=== PATIENT | female | born 1960 | race Caucasian/White ===

== ENCOUNTER 2018-01-04 21:10 | Emergency (ER) | payer MEDICARE ==
[~2018-01-04] VITALS: Ht 175.3 cm; Wt 80.5 kg
[2018-01-04 21:31] VITALS: Ht 175.3 cm; Wt 80.5 kg
[2018-01-04] MEDS ORDERED: INVOKANA300 MG PO (21:37)
[2018-01-04] MEDS ORDERED: BUPROPION XL300 MG (21:37)
[2018-01-04] MEDS ORDERED: CYCLOBENZAPRINE10 MG PO (21:38)
[2018-01-04] MEDS ORDERED: CLEOCIN HCL300 MG PO ×2 (21:38→23:28)
[2018-01-04] MEDS ORDERED: PROZAC10 MG PO (21:39)
[2018-01-04] MEDS ORDERED: DIFLUCAN100 MG (21:39)
[2018-01-04] MEDS ORDERED: FEXOFENADINE H180 MG PO (21:39)
[2018-01-04] MEDS ORDERED: VALIUM10 MG PO (21:39)
[2018-01-04] MEDS ORDERED: BASAGLAR K100 UNIT/1 SC (21:40)
[2018-01-04] MEDS ORDERED: HUMALOG 30100 UNITS/ SC (21:40)
[2018-01-04] MEDS ORDERED: NORCO 10-325 TA1 TAB PO (21:40)
[2018-01-04] MEDS ORDERED: ZESTORETIC 20-1 EACH PO (21:41)
[2018-01-04] MEDS ORDERED: LINZESS290 MCG PO (21:41)
[2018-01-04] MEDS ORDERED: LEVOXYL50 MCG PO (21:41)
[2018-01-04] MEDS ORDERED: CLARITIN 10 MG10 MG PO (21:42)
[2018-01-04] MEDS ORDERED: REGLAN5 MG PO ×2 (21:43→21:44)
[2018-01-04] MEDS ORDERED: NITROQUICK0.4 MG SL (21:44)
[2018-01-04] MEDS ORDERED: OMEPRAZOLE40 MG PO (21:45)
[2018-01-04] MEDS ORDERED: PREMARIN0.625 MG PO (21:45)
[2018-01-04] MEDS ORDERED: LYRICA100 MG PO (21:45)
[2018-01-04] MEDS ORDERED: JANUMET XR 50-1 EACH PO (21:46)
[2018-01-04] MEDS ORDERED: PROMETRIUM200 MG PO (21:46)
[2018-01-04] MEDS ORDERED: ZOCOR10 MG PO (21:46)
[2018-01-04] MEDS ORDERED: SILVADENE20 GM TP (21:47)
[2018-01-04] MEDS ORDERED: TOPAMAX50 MG PO (21:47)
[2018-01-04] MEDS ORDERED: AMBIEN10 MG PO (21:47)
[2018-01-04 22:31] LABS: ALBUMIN 3.9 g/dL (3.4-5.0); ANION GAP 13.5 mmol/L (8-16); BILIRUBIN - TOTAL 0.16 mg/dL (0.2-1.3); CALCIUM 9.5 mg/dL (8.5-10.1); CARBON DIOXIDE 26.5 mmol/L (21.0-32.0); CREATININE - SERUM 1.5 mg/dL (0.6-1.3); PROTEIN - SERUM 8.2 g/dL (6.4-8.2)
[2018-01-04 22:32] LABS: BASOPHILS 0.4 % (0-2); EOSINOPHILS 4.6 % (0-7); HEMATOCRIT 42.3 % (36.0-48.0); HEMOGLOBIN 13.8 g/dL (12-16); IMMATURE GRANULOCYTES 0.7 % (0-5); LYMPHOCYTES 29.3 % (15-50); MCH 30.7 pg (26.0-34.0); MCHC 32.6 g/dL (31.0-37.0); MCV 94.2 fL (80.0-100.0); PLATELET COUNT 306 10x3/uL (130-400); RBC 4.49 10x6/uL (4.00-5.40); WBC 10.7 10x3/uL (4.8-10.8)
[2018-01-04] MEDS ORDERED: KEFLEX500 MG PO (23:28)
[2018-01-04] MEDS ORDERED: FLORASTOR250 MG PO (23:29)
[2018-01-04 23:40] VITALS: BP 128/93
== END 2018-01-04 23:38 ==
LOC: D.ER 21:10
PROVIDERS: Family Medicine
DX: L03.032 Cellulitis of left toe (principal); I10 Essential (primary) hypertension; I25.10 Atherosclerotic heart disease of native coronary artery without angina pectoris; K21.9 Gastro-esophageal reflux disease without esophagitis

== ENCOUNTER 2020-06-23 16:15 | Inpatient (IN) | payer MEDICARE ==
[~2020-06-23] VITALS: Ht 175.3 cm; Wt 90.3 kg
[~2020-06-23 16:15] MED LIST: AMBIEN10 MG PO; BASAGLAR K100 UNIT/1 SC; BUPROPION XL300 MG PO; CLARITIN 10 MG10 MG PO; CLEOCIN HCL300 MG PO; CYCLOBENZAPRINE10 MG PO; DIFLUCAN100 MG PO; FEXOFENADINE H180 MG PO; FLORASTOR250 MG PO; HUMALOG 30100 UNITS/ SC; INVOKANA300 MG PO; JANUMET XR 50-1 EACH PO; KEFLEX500 MG PO; LEVOXYL50 MCG PO; LINZESS290 MCG PO; LYRICA100 MG PO; NITROQUICK0.4 MG SL; NORCO 10-325 TA1 TAB PO; OMEPRAZOLE40 MG PO; PREMARIN0.625 MG PO; PROMETRIUM200 MG PO; PROZAC10 MG PO; REGLAN5 MG PO; SILVADENE20 GM TP; TOPAMAX50 MG PO; VALIUM10 MG PO; ZESTORETIC 20-1 EACH PO; ZOCOR10 MG PO
[2020-06-23 19:02] LABS: BASOPHILS 0.3 % (0-2); EOSINOPHILS 4.6 % (0-7); HEMATOCRIT 34.3 % (36.0-48.0); IMMATURE GRANULOCYTES 0.8 % (0-5); LYMPHOCYTE ABS# 2.81 10x3/uL (1.18-3.74); LYMPHOCYTES 27.7 % (15-50); MCHC 29.2 g/dL (31.0-37.0); MCV 85.8 fL (80.0-100.0); MEAN PLATELET VOLUME 9.4 fL (7.4-10.4); MONOCYTES 7.8 % (2-11); NEUTROPHIL ABS# 5.96 10x3/uL (1.56-6.13); NEUTROPHILS 58.8 % (40-80); RDW 15.9 % (11.5-14.5); WBC 10.1 10x3/uL (4.8-10.8)
[2020-06-23 19:03] LABS: PLATELET COUNT 378 10x3/uL (130-400)
[2020-06-23 19:13] LABS: APTT 23.5 SECONDS (22.8-39.4); INR 1.04 (0.85-1.17); PROTIME 12.6 SECONDS (11.6-15.0)
[2020-06-23 19:29] LABS: CALC OSMOLALITY 283 mosm/kg (275-300); CALCIUM 9.7 mg/dL (8.5-10.1); CARBON DIOXIDE 25.9 mmol/L (21.0-32.0); CHLORIDE - SERUM 103 mmol/L (98-107); CREATININE - SERUM 1.1 mg/dL (0.6-1.3); POTASSIUM - SERUM 3.9 mmol/L (3.5-5.1); SODIUM 141 mmol/L (136-145); UREA NITROGEN 22 mg/dL (7-18); eGFR NON AFRICAN AMERICAN 54 mL/min (90-120)
[2020-06-23 19:43] LABS: GLUCOSE 96 mg/dL (74-106)
[2020-06-23 19:45] LABS: ALBUMIN 3.4 g/dL (3.4-5.0); ALKALINE PHOSPHATASE 80 U/L (30-120); ALT (SGPT) 23 U/L (10-68); BILIRUBIN - TOTAL 0.22 mg/dL (0.2-1.3)
[2020-06-23 19:51] LABS: TROPONIN-I < 0.017 ng/mL (0.000-0.060)
[2020-06-23 20:27] VITALS: BP 174/81
[2020-06-23 21:30] VITALS: BP 159/93
[2020-06-23 21:52] LABS: % SATURATION 8 % (15-55); IRON 29 ug/dl (35-150); TOTAL IRON BIND CAPACITY 357 ug/dl (260-445); UNSAT IRON BIND CAPACITY 328 ug/dl (150-375)
[2020-06-23 22:08] VITALS: BP 138/74
[2020-06-23 22:20] LABS: MAGNESIUM - SERUM 1.6 mg/dL (1.8-2.4)
--- NOTE | 2020-06-23 23:30 | NUR ---
PT ARRIVED TO FLOOR VIA STRETCHER. TRANSFERED SELF TO BED WITHOUT DIFFICULTY. PT STATES SHE HAS HAD 2-3 WEEK HISTORY OF SOB AND PAIN TO LEFT LOWER LEG AND WENT TO BE SEEN BY DR TODD AND WAS SENT TO ER. PT IS ON ROOM AIR AT THIS TIME WITHOUT DISTRESS. IV RIGHT FA SL. DENIES PAIN OR NEEDS. ADMIT ASSESSMENT COMPLETED AT THIS TIME. CL IN REACH
[2020-06-24] VITALS (7 sets, daily range): BP systolic 96–165; BP diastolic 53–75; Ht 175.3 cm; Wt 90.3 kg
[2020-06-24] MEDS ORDERED: NOVOLOG100 UNIT/1 SC (00:35)
[2020-06-24] MEDS ORDERED: LIPITOR40 MG PO (00:38)
[2020-06-24] MEDS ORDERED: NEURONTIN 300300 MG PO (00:43)
[2020-06-24] MEDS ORDERED: HYDROCODON-ACE1 EA10 PO (00:44)
[2020-06-24] MEDS ORDERED: LISINOPRIL-HCT1 EAC8 PO (00:46)
[2020-06-24] MEDS ORDERED: CLARITIN 10 MG10 MG PO (00:47)
[2020-06-24] MEDS ORDERED: GLUCOPHAGE1000 MG PO (00:48)
[2020-06-24] MEDS ORDERED: CORTISPORIN OTI10 M1 EACH EAR (00:49)
[2020-06-24] MEDS ORDERED: ONDANSETRON HCL8 MG PO (00:51)
[2020-06-24] MEDS ORDERED: SYNTHROID75 MCG PO (00:53)
[2020-06-24 06:01] LABS: BASOPHILS 0.5 % (0-2); EOSINOPHILS 4.9 % (0-7); HEMATOCRIT 30.6 % (36.0-48.0); HEMOGLOBIN 8.6 g/dL (12-16); IMMATURE GRANULOCYTES 0.9 % (0-5); LYMPHOCYTE ABS# 3.34 10x3/uL (1.18-3.74); LYMPHOCYTES 33.5 % (15-50); MCH 24.4 pg (26.0-34.0); MCHC 28.1 g/dL (31.0-37.0); MCV 86.7 fL (80.0-100.0); MEAN PLATELET VOLUME 10.5 fL (7.4-10.4); MONOCYTES 7.8 % (2-11); NEUTROPHIL ABS# 5.21 10x3/uL (1.56-6.13); NEUTROPHILS 52.4 % (40-80); PLATELET COUNT 343 10x3/uL (130-400); RBC 3.53 10x6/uL (4.00-5.40); RDW 16.3 % (11.5-14.5)
[2020-06-24 06:29] LABS: APTT 20.2 SECONDS (22.8-39.4); INR 1.06 (0.85-1.17); PROTIME 12.7 SECONDS (11.6-15.0)
[2020-06-24 06:36] LABS: ALBUMIN 2.6 g/dL (3.4-5.0); ANION GAP 16.5 mmol/L (8-16); BILIRUBIN - TOTAL 0.15 mg/dL (0.2-1.3); CALCIUM 8.8 mg/dL (8.5-10.1); CARBON DIOXIDE 23.3 mmol/L (21.0-32.0); CREATININE - SERUM 1.1 mg/dL (0.6-1.3); MAGNESIUM - SERUM 1.8 mg/dL (1.8-2.4); POTASSIUM - SERUM 3.8 mmol/L (3.5-5.1); PROTEIN - SERUM 6.4 g/dL (6.4-8.2)
--- NOTE | 2020-06-24 07:42 | NUR ---
ALERT AND ORIENTED. ASSESSMENT COMPLETE. DENIES NEEDS. BED LOW. CALL TRINH AND PERSONAL ITEMS IN REACH. WILL CONTINUE TO MONITOR.
--- NOTE | 2020-06-24 08:15 | NUR ---
EDUCATION PROVIDED ON NEED FOR UA AND STOOL SAMPLE. VERBALIZED UNDERSTANDING. HATS PLACED IN TOILET.
--- NOTE | 2020-06-24 08:41 | NUR ---
IS AT BEDSIDE OPENED FOR PATIENT AND EDUCATION PROVIDED. PER PULMONARY NOTE, IS RECOMMENDED FOR PATIENT. PATIENT VERBALIZES UNDERSTANDING. 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
--- NOTE | 2020-06-24 09:41 | NUR ---
PATIENT CONCERNED ABOUT NOT GETTING HOME DOSES OF SCHEDULED INSULIN. SPOKE WITH RICKY SPENCER TO NOTIFY. STATES WILL CHECK HOME MEDS.
--- NOTE | 2020-06-24 10:33 | NUR ---
PATIENT STATES FEELING SOB. CHECKED PULSE OX AND PATIENT SAT 92% ON ROOM AIR. PLACED ON 2L NC FOR COMFORT.
--- NOTE | 2020-06-24 11:57 | NUR ---
URINE COLLECTED AND TAKEN TO LAB.
[2020-06-24 12:12] LABS: BILIRUBIN NEGATIVE (NEGATIVE); KETONE NEGATIVE (NEGATIVE); NITRITE POSITIVE (NEGATIVE); UROBILINOGEN NORMAL mg/dL (< 2)
[2020-06-24 12:17] LABS: BACTERIA MANY HPF (NONE SEEN); SQUAMOUS EPITHELIAL 0-5 HPF (0-4); WHITE CELLS - URINE NONE SEEN HPF (0-4)
[2020-06-24 12:17] LABS: UDS - AMPHET NEGATIVE QUAL (NEGATIVE); UDS - BARB NEGATIVE QUAL (NEGATIVE); UDS - BENZO POSITIVE QUAL (NEGATIVE); UDS - COCAINE NEGATIVE QUAL (NEGATIVE); UDS - OPIATE POSITIVE QUAL (NEGATIVE); UDS - PCP NEGATIVE QUAL (NEGATIVE); UDS - THC NEGATIVE QUAL (NEGATIVE)
[2020-06-25] VITALS: BP 122/58
[2020-06-25 04:00] VITALS: BP 112/52
[2020-06-25 06:43] LABS: BASOPHILS 0.4 % (0-2); EOSINOPHILS 4.6 % (0-7); HEMATOCRIT 30.6 % (36.0-48.0); HEMOGLOBIN 8.5 g/dL (12-16); LYMPHOCYTE ABS# 3.29 10x3/uL (1.18-3.74); LYMPHOCYTES 34.9 % (15-50); MCH 24.3 pg (26.0-34.0); MCHC 27.8 g/dL (31.0-37.0); MCV 87.4 fL (80.0-100.0); MONOCYTES 11.9 % (2-11); NEUTROPHIL ABS# 4.47 10x3/uL (1.56-6.13); NEUTROPHILS 47.2 % (40-80); RDW 16.1 % (11.5-14.5); WBC 9.4 10x3/uL (4.8-10.8)
[2020-06-25 06:52] LABS: ALBUMIN 2.8 g/dL (3.4-5.0); ANION GAP 13.7 mmol/L (8-16); BILIRUBIN - TOTAL 0.1 mg/dL (0.2-1.3); CALCIUM 9.5 mg/dL (8.5-10.1); CARBON DIOXIDE 25.9 mmol/L (21.0-32.0); CREATININE - SERUM 1.1 mg/dL (0.6-1.3); MAGNESIUM - SERUM 1.7 mg/dL (1.8-2.4); POTASSIUM - SERUM 3.6 mmol/L (3.5-5.1); PROTEIN - SERUM 6.8 g/dL (6.4-8.2)
[2020-06-25 06:53] LABS: PLATELET COUNT 419 10x3/uL (130-400)
--- NOTE | 2020-06-25 07:35 | NUR ---
ALERT AND ORIENTED. ASSESSMENT COMPLETE. DENIES NEEDS. BED LOW. CALL TRINH AND PERSONAL ITEMS IN REACH. WILL CONTINUE TO MONITOR.
[2020-06-25 09:40] VITALS: BP 107/50
[2020-06-25 10:12] LABS: ANA REFLEX - DIRECT Negative (Negative)
[2020-06-25 11:12] LABS: ACLA - IGG AB <9 GPL U/mL (0-14); ACLA - IGM AB <9 MPL U/mL (0-12)
[2020-06-25] MEDS ORDERED: XARELTO15 MG PO (12:34)
[2020-06-25] MEDS ORDERED: XARELTO20 MG PO (12:38)
[2020-06-25] MEDS ORDERED: LEVOFLOXACIN500 MG PO (12:40)
[2020-06-25 14:59] VITALS: BP 106/53
--- NOTE | 2020-06-25 15:06 | NUR ---
DC EDUCATION PROVIDED BOTH WRITTEN AND VERBAL. VERBALIZED UNDERSTANDING. DENIES FURTHER QUESTIONS. IV REMOVED FROM RFA WITH TIP INTACT. PATIENT DC HOME WITH FAMILY MEMBER WITH ALL BELONGINGS.
[2020-06-26 12:09] LABS: PROTEIN S - FREE 119 % (57-157); PROTEIN S - FUNCTIONAL 89 % (63-140); PROTEIN S - TOTAL 147 % (60-150)
[2020-06-26 14:09] LABS: LUPUS - INTERPRETATION Comment: (()); LUPUS - THROMBIN TIME 16.7 sec (0.0-23.0); LUPUS - dRVVT 44.7 sec (0.0-47.0); PTT-LA 26.2 sec (0.0-51.9)
[2020-06-26 18:08] LABS: MITOCHONDRIAL ANTIBODY <20.0 Units (0.0-20.0)
[2020-06-27 18:07] LABS: PROTEIN C - ANTIGEN 131 % (60-150); PROTEIN C - FUNCTIONAL 144 % (73-180)
--- NOTE | 2020-06-28 08:00 | EC ---
PATIENT:CARMELO HANSEN DATE OF SERVICE: 06/23/20 SEX: F MEDICAL RECORD: [id number] DATE OF : 60 LOCATION:[facility] AGE OF PATIENT: 59 ADMISSION DATE: 06/23/20 REFERRING PHYSICIAN: INTERPRETING PHYSICIAN: LANIE SMITH MD ECHOCARDIOGRAM REPORT ECHO CHARGES 4 ECHO COMPLETE Date: 06/24/20 CLINICAL DIAGNOSIS: DYSPNEA ECHOCARDIOGRAPHIC MEASUREMENTS (adult normal given) AC root (d.<3.7cm) 2.7 cm LV Septum d (<1.2 cm> 1.0 cm Valve Excursion 1.6 cm LV Septum (systole) 1.3 cm Left Atria (s.<4.0cm> 3.6 cm LVPW d(<1.2cm) 1.0 cm RV (d.<2.3cm) 2.6 cm LVPW (sytole) 1.1 cm LV diastole(<5.6CM) 4.9 cm MV E-F(>70mm/sec) cm LV systole 4.0 cm LVOT Diameter 1.3 cm MV exc.(>10mm) 1.2 cm Est.ejection fraction (50-75%) % DOPPLER: LVIT cm/sec A 93 cm/sec E 86 cm/sec LA cm/sec RVSP 16 mmHg LVOT 127 cm/sec AOP1/2T m/s Asc. Ao 125 cm/sec RVOT 85 cm/sec RA cm/sec PA 98 cm/sec AV Gradient Peak 6.2 mmHg AV Mean 3.5 mmHg AV Area 1.5 cm MV Gradient Peak 3.5 mmHg MV Mean 1.7 mmHg MV Area cm COMMENTS: Vegetable [employer] Machine Operator: Ezekiel PANCHAL Junior Web Designer: 3 Dr. Walden TAPE# Pericardial Effusion N DATE OF SERVICE: Adequate 2D, color-flow imaging, spectral Doppler, and M-Mode FINDINGS: No LVH. LV internal dimension is normal. Wall motion is normal. EF is greater than or equal to 55%. Aortic valve is tricuspid. No evidence of stenosis by Doppler interrogation. Left atrium is normal. Mitral valve shows no prolapse. Trace MR. Right side is grossly normal. Trace TR. TRANSINT:[id number] Voice Confirmation ID: [id number] DOCUMENT ID: [id number] ECHOCARDIOGRAM REPORT [id number] CARMELO HANSEN LANIE SMITH MD at 0800 CC: [id number] DICTATION DATE: 06/24/20 1527 SHELLFISH BED WORKER: 06/24/20 1555 DIS IN 06/25/20 [place] [id number] [place] [id number]
[2020-06-28 14:09] LABS: ANTITHROMBIN III ACTIVITY 131 % (75-135); PLASMINOGEN ACTIVITY 190 % (70-150)
== END 2020-06-25 15:07 | disposition home or self-care (01) | DRG 299 ==
LOC: D.ER 16:15 → D.MS 20:53
PROVIDERS: Emergency Medicine; Family Medicine; ADMIT Family Medicine; ATTEND Family Medicine
DX: I82.412 Acute embolism and thrombosis of left femoral vein (principal); I26.99 Other pulmonary embolism without acute cor pulmonale; E11.51 Type 2 diabetes mellitus with diabetic peripheral angiopathy without gangrene; I25.10 Atherosclerotic heart disease of native coronary artery without angina pectoris; E03.9 Hypothyroidism, unspecified; E11.40 Type 2 diabetes mellitus with diabetic neuropathy, unspecified; K21.9 Gastro-esophageal reflux disease without esophagitis; E11.43 Type 2 diabetes mellitus with diabetic autonomic (poly)neuropathy; K31.84 Gastroparesis; L40.9 Psoriasis, unspecified; D64.9 Anemia, unspecified; I10 Essential (primary) hypertension; N31.9 Neuromuscular dysfunction of bladder, unspecified